=== PATIENT | female | born 1955 | race Caucasian/White ===

== ENCOUNTER 2017-10-01 08:39 | Outpatient (CLI) | payer OTHER | END 2017-10-01 08:40 | disposition home or self-care (01) | LOC: BICMAMMO 08:39 | PROVIDERS: ATTEND Internal Medicine Hematology & Oncology | DX: Z08 Encounter for follow-up examination after completed treatment for malignant neoplasm (principal); Z85.3 Personal history of malignant neoplasm of breast; Z80.3 Family history of malignant neoplasm of breast | CPT/HCPCS: 77066; G0279 ==

== ENCOUNTER 2020-07-07 07:50 | Outpatient (CLI) | payer OTHER, MEDICARE | END 2020-07-07 07:51 | disposition home or self-care (01) | LOC: DTY/OP 07:50 | PROVIDERS: ATTEND Surgery | DX: E03.9 Hypothyroidism, unspecified (principal) | CPT/HCPCS: 97802 ==

== ENCOUNTER 2021-01-05 16:30 | Inpatient (IN) | payer OTHER, MEDICARE ==
[2021-01-07 10:53] VITALS: BMI 39.0
[2021-01-10] MEDS ORDERED: Enoxaparin Sodium 40 MG/0.4 ML SYRINGE ONE (07:32)
[2021-01-10] MEDS ORDERED: Scopolamine 1.5 mg/72 hour Patch ONE (07:33)
[2021-01-10] MEDS ORDERED: cefOXitin Sodium/Dextrose 2 GM/50 ML BAG ONE (07:33)
[2021-01-10] MEDS ORDERED: Ondansetron PF 4 MG/2 ML Vial IVP PRN (09:13)
[2021-01-10] MEDS ORDERED: Dextrose 5% in Water 1,000 ML IV PRN (09:13)
[2021-01-10] MEDS ORDERED: Dextrose 50% Abboject 50 ML SYRINGE SLOW IVP PRN (09:13)
[2021-01-10] MEDS ORDERED: Promethazine HCl 25 MG/ML VIAL IM PRN ×2 (09:13→10:23)
[2021-01-10] MEDS ORDERED: diphenhydrAMINE 50 MG/ML VIAL IVP PRN (09:13)
[2021-01-10] MEDS ORDERED: hydrALAZINE 20 MG/ML VIAL SLOW IVP PRN (09:13)
[2021-01-10] MEDS ORDERED: Hydrocodone-Acetamin 15 ML UDCUP PO PRN (09:13)
[2021-01-10] MEDS ORDERED: Bupivacaine 0.25% HCL 30 ML VIAL ONE (09:19)
[2021-01-10] MEDS ORDERED: Lidocaine 1% w/Epinephrine 1:100K 20 ML VIAL ONE (09:19)
[2021-01-10] MEDS ORDERED: Fentanyl 250 MCG/5 ML VIAL ONE (09:32)
[2021-01-10] MEDS ORDERED: Rocuronium Bromide 10 MG/ML (10ML VIAL) ONE (09:44)
[2021-01-10] MEDS ORDERED: PROPOFOL 200 MG/20 ML VIAL ONE (09:44)
[2021-01-10] MEDS ORDERED: Dexamethasone 20 MG/5 ML VIAL ONE (09:44)
[2021-01-10] MEDS ORDERED: Ondansetron PF 4 MG/2 ML Vial ONE (09:44)
[2021-01-10] MEDS ORDERED: Lidocaine 1% PF 5 ML VIAL ONE (09:44)
[2021-01-10] MEDS ORDERED: Glycopyrrolate 0.2 MG/ML 5 ML SYRINGE ONE (09:44)
[2021-01-10] MEDS ORDERED: Ketorolac Tromethamine 30 MG/ML VIAL ONE (09:44)
[2021-01-10] MEDS ORDERED: Promethazine HCl 25 MG/ML VIAL IVPB PRN (10:23)
[2021-01-10] MEDS ORDERED: Ondansetron HCl/PF 4 MG/2 ML Vial IVP PRN (10:23)
[2021-01-10] MEDS ORDERED: SUGAMMADEX SODIUM 200 MG/2 ML VIAL ONE (11:13)
[2021-01-10] MEDS ORDERED: Fentanyl 100 MCG/2 ML VIAL ONE ×2 (11:24→11:52)
[2021-01-10] MEDS ORDERED: Morphine 4 MG/ML VIAL SLOW IVP PRN (11:32)
[2021-01-10] MEDS ORDERED: Acetaminophen 325 MG/10.15 ML UDCUP ONE (12:02)
[2021-01-10] MEDS ORDERED: Acetaminophen 325 MG/10.15 ML UDCUP PO SCH (12:30)
[2021-01-10] MEDS ORDERED: Promethazine HCl 25 MG/ML VIAL ONE (12:42)
[2021-01-10] MEDS ORDERED: Morphine 4 MG/ML VIAL ONE ×2 (13:27→14:57)
[2021-01-10] MEDS ORDERED: D5 1/2 NS w/20 mEq KCL 1,000 ML ONE (16:43)
[2021-01-10] MEDS: Ketorolac Tromethamine 30 MG/ML VIAL IVP SCH ×3 (17:18→23:31)
[2021-01-10] MEDS: D5 1/2 NS w/20 mEq KCL 1,000 ML IV SCH ×2 (17:19→18:49)
[2021-01-11] MEDS: D5 1/2 NS w/20 mEq KCL 1,000 ML IV SCH ×2 (01:49→13:14)
[2021-01-11] MEDS: Ketorolac Tromethamine 30 MG/ML VIAL IVP SCH ×2 (05:13→13:14)
[2021-01-11 05:38] LABS: #Lymphocytes 1.7 thou/uL (1.20-3.40); #Monocytes 0.6 thou/uL (0.11-0.59); #Neutrophils 6.3 thou/uL (1.40-6.50); %Eosinophils 0.4 % (0.0-10.0); %Lymphocytes 19.6 % (21.0-51.0); %Monocytes 6.6 % (0.0-10.0); %Neutrophils 73.3 % (42.0-75.0); Mean Corpuscular HGB CONC 32.9 g/dL (32.0-36.0); Mean Corpuscular Hemoglobin 28.7 pg (27.0-31.0); Mean Corpuscular Volume 87.1 fL (78.0-98.0); Mean Platelet Volume 6.2 fL (7.4-10.4); Platelet Count 227 thou/uL (130-400); RBC Distribution Width 14.2 % (11.5-14.5); Red Blood Cell (RBC) Count 4.55 mill/uL (4.20-5.40); White Blood Cell (WBC) Count 8.6 thou/uL (4.8-10.8)
[2021-01-11 05:57] LABS: Anion Gap 12 mmol/L (10-20); BUN (Urea Nitrogen) 10 mg/dL (9.8-20.1); Calc. Creatinine Clearance 114 mL/min (70-130); Calcium 8.4 mg/dL (7.8-10.44); Carbon Dioxide 26 mmol/L (23-31); Chloride 106 mmol/L (98-107); Glucose 91 mg/dL (80-115); Potassium 4.4 mmol/L (3.5-5.1); Sodium 140 mmol/L (136-145)
[2021-01-11] MEDS ORDERED: Levothyroxine Sodium 75 MCG TAB PO SCH (06:00)
[2021-01-11 08:12] VITALS: BP 140/83; TEMP 98.4
[2021-01-11] MEDS ORDERED: Pantoprazole 40 MG VIAL IVP SCH (09:00)
[2021-01-11] MEDS ORDERED: Enoxaparin Sodium 40 MG/0.4 ML SYRINGE SC SCH (09:00)
== END 2021-01-11 14:23 | disposition home or self-care (01) | DRG 621 ==
LOC: SURG A 01-10 06:49 → SJJU 01-10 17:32
PROVIDERS: ADMIT Surgery; ATTEND Surgery
PROC: 0DB64Z3 Excision of Stomach, Percutaneous Endoscopic Approach, Vertical (ICD-10-PCS; principal; 2021-01-10)
PROC: 8E0W4CZ Robotic Assisted Procedure of Trunk Region, Percutaneous Endoscopic Approach (ICD-10-PCS; 2021-01-10)
DX: E66.01 Morbid (severe) obesity due to excess calories (principal); Z20.822 Contact with and (suspected) exposure to COVID-19; M19.90 Unspecified osteoarthritis, unspecified site; I25.10 Atherosclerotic heart disease of native coronary artery without angina pectoris; K44.9 Diaphragmatic hernia without obstruction or gangrene; J30.2 Other seasonal allergic rhinitis; R73.9 Hyperglycemia, unspecified; K21.9 Gastro-esophageal reflux disease without esophagitis; Z90.710 Acquired absence of both cervix and uterus; Z68.39 Body mass index [BMI] 39.0-39.9, adult; Z91.040 Latex allergy status
CPT/HCPCS: 36415; 80048; 85025; 88307; C9113; J0694; J1100; J1650; J1885; J2270; J2405; J2550; J2704; J3010; J3480; S0020

== ENCOUNTER 2021-01-05 16:32 | Outpatient (CLI) | payer OTHER, MEDICARE ==
[2021-01-06 01:56] LABS: SARS-CoV-2 PCR by NAA Not Detected (NotDetected)
== END 2021-01-05 16:33 | disposition home or self-care (01) ==
LOC: LABBT 16:32
PROVIDERS: ATTEND Surgery
DX: Z01.812 Encounter for preprocedural laboratory examination (principal); E66.01 Morbid (severe) obesity due to excess calories; M19.90 Unspecified osteoarthritis, unspecified site; Z68.41 Body mass index [BMI] 40.0-44.9, adult; Z20.822 Contact with and (suspected) exposure to COVID-19
CPT/HCPCS: 82040; U0003; U0005

== ENCOUNTER 2023-11-29 15:52 | Outpatient (CLI) | payer BC, MEDICARE ==
[2023-11-29 17:20] LABS: #Basophils 0.03 10x3/uL (0.0-0.2); %Basophils 0.5 % (0.0-1.0); %Eosinophils 1.5 % (0.0-10.0); %Lymphocytes 24.9 % (21.0-51.0); %Monocytes 8.1 % (0.0-10.0); %Neutrophils 64.7 % (42.0-75.0); Hematocrit 40.9 % (36.0-47.0); Mean Corpuscular HGB CONC 31.8 g/dL (32.0-36.0); Mean Corpuscular Hemoglobin 29.1 pg (27.0-31.0); Mean Corpuscular Volume 91.5 fL (78.0-98.0); Mean Platelet Volume 8.8 fL (7.4-10.4); Platelet Count 202 10x3/uL (130-400); RBC Distribution Width 14.5 % (11.5-14.5); Red Blood Cell (RBC) Count 4.47 mill/uL (4.20-5.40)
[2023-11-29 17:25] LABS: Bacteria/HPF None Seen HPF (None Seen); Bilirubin Negative (Negative); Blood, Urine Negative (Negative); Clarity Clear (Clear); Glucose, Urine (Dipstick) Normal (Negative); Ketone, Urine Negative (Negative); Leukocyte Negative Leu/uL (Negative); Nitrite Negative (Negative); Protein, Urine (Dipstick) 10 mg/dL (Neg-Trace); RBC/HPF 0-3 HPF (0-3); WBC/HPF 0-3 HPF (0-3); pH, Urine 5.5 (5.0-9.0)
[2023-11-29 17:33] LABS: Anion Gap 11 mmol/L (10-20); BUN (Urea Nitrogen) 16 mg/dL (9.8-20.1); Calc. Creatinine Clearance 0 mL/min (70-130); Calcium 9.1 mg/dL (7.8-10.44); Carbon Dioxide 25 mmol/L (23-31); Chloride 108 mmol/L (98-107); Estimated GFR 66; Glucose 104 mg/dL (80-115); Sodium 140 mmol/L (136-145)
[2023-11-29 17:34] LABS: Prothrombin Time 12.8 sec (12.0-14.7)
== END 2023-11-29 15:53 | disposition home or self-care (01) ==
LOC: LABBT 15:52
PROVIDERS: ATTEND Urology
DX: Z01.818 Encounter for other preprocedural examination (principal); N28.89 Other specified disorders of kidney and ureter; I25.10 Atherosclerotic heart disease of native coronary artery without angina pectoris; Z68.41 Body mass index [BMI] 40.0-44.9, adult
CPT/HCPCS: 71046; 80048; 81001; 85025; 85610; 85730; 86850; 86900; 86901; 87086; 93005; 93010

== ENCOUNTER 2023-11-29 16:00 | Inpatient (IN) | payer BC, MEDICARE ==
[2023-11-29 16:46] VITALS: BMI 29.7
[2023-12-10] MEDS ORDERED: LevoFLOXacin D5W 500 mg (100 mL) BAG ONE (06:41)
[2023-12-10] MEDS ORDERED: CEFAZOLIN 2 GM VIAL ONE (06:42)
[2023-12-10] MEDS ORDERED: Sodium Chloride 0.9% 100 ML ONE (06:42)
[2023-12-10] MEDS ORDERED: Lidocaine 1% MPF 2 ML VIAL ONE (07:10)
[2023-12-10] MEDS ORDERED: Midazolam HCl 2 mg/2 ml Vial ONE (07:10)
[2023-12-10] MEDS ORDERED: fentaNYL 50 mcg/mL 1 mL Vial ONE ×2 (07:24→10:53)
[2023-12-10] MEDS ORDERED: Lidocaine 1.5% w/Epi 1:200K 30 ML VIAL (Epid Use) ONE (07:30)
[2023-12-10] MEDS ORDERED: PROPOFOL 20 ML ONE (07:40)
[2023-12-10] MEDS ORDERED: fentaNYL PF 100 MCG/2 ML SYRINGE ONE (07:40)
[2023-12-10] MEDS ORDERED: Lidocaine 2% PF 5 ML VIAL ONE (07:40)
[2023-12-10] MEDS ORDERED: Bupivacaine PF 0.5% 30 ML VIAL ONE (07:44)
[2023-12-10] MEDS ORDERED: Phenylephrine 10 MG/ML VIAL ONE (07:46)
[2023-12-10] MEDS ORDERED: PHENYLEPHRINE-NS 100 MCG/ML 10 ML SYRINGE ONE ×3 (07:57→13:16)
[2023-12-10] MEDS ORDERED: diphenhydrAMINE 50 MG/ML VIAL IVP PRN (08:00)
[2023-12-10] MEDS ORDERED: Naloxone HCl 0.4 mg/ml Vial IV PRN (08:00)
[2023-12-10] MEDS ORDERED: Naloxone HCl 0.4 mg/ml Vial IVP PRN (08:00)
[2023-12-10] MEDS ORDERED: Moisturizing Cream (Eucerin) 113 GM JAR TOP PRN (08:00)
[2023-12-10] MEDS ORDERED: diphenhydrAMINE 50 MG/ML VIAL IM PRN (08:00)
[2023-12-10] MEDS ORDERED: Promethazine HCl 25 MG SUPP PR PRN (08:00)
[2023-12-10] MEDS ORDERED: Promethazine HCl 25 MG/ML VIAL IM PRN ×2 (08:00→09:33)
[2023-12-10] MEDS ORDERED: Bupivacaine 0.25% 10 ML VIAL EPIDURAL PRN (08:00)
[2023-12-10] MEDS ORDERED: ePHEDrine Sulfate 50 MG/10 ML VIAL ONE (08:48)
[2023-12-10] MEDS ORDERED: Dexamethasone 20 MG/5 ML VIAL ONE (09:29)
[2023-12-10] MEDS ORDERED: Ondansetron PF 4 MG/2 ML Vial ONE (09:29)
[2023-12-10] MEDS ORDERED: Ondansetron HCl/PF 4 MG/2 ML Vial IVP PRN (09:33)
[2023-12-10] MEDS ORDERED: HYDROmorphone 2 MG/ML VIAL SLOW IVP PRN (09:33)
[2023-12-10] MEDS ORDERED: PACU-Morphine 4MG/ML VIAL SLOW IVP PRN (09:33)
[2023-12-10] MEDS ORDERED: Rocuronium Bromide 10 MG/ML (10ML VIAL) ONE ×2 (09:57→11:25)
[2023-12-10] MEDS ORDERED: SUGAMMADEX SODIUM 200 MG/2 ML VIAL ONE (10:12)
[2023-12-10] MEDS ORDERED: HYDROmorphone 0.5 MG/0.5 ML SYRINGE ONE (10:34)
[2023-12-10] MEDS ORDERED: hydrALAZINE 20 MG/ML VIAL SLOW IVP PRN (10:38)
[2023-12-10] MEDS ORDERED: Zolpidem Tartrate 5 MG TAB PO PRN ×2 (10:38→15:17)
[2023-12-10] MEDS ORDERED: Acetaminophen 500 MG TAB PO PRN (10:41)
[2023-12-10] MEDS ORDERED: Ondansetron PF 4 MG/2 ML Vial IVP PRN (10:42)
[2023-12-10] MEDS ORDERED: Bupivacaine 0.25% HCL 30 ML VIAL ONE (10:53)
[2023-12-10 11:10] LABS: #Basophils 0.03 10x3/uL (0.0-0.2); %Basophils 0.3 % (0.0-1.0); %Eosinophils 0.6 % (0.0-10.0); %Monocytes 5.7 % (0.0-10.0); %Neutrophils 78.2 % (42.0-75.0); Hematocrit 36.7 % (36.0-47.0); Mean Corpuscular HGB CONC 32.7 g/dL (32.0-36.0); Mean Corpuscular Hemoglobin 29.6 pg (27.0-31.0); Mean Corpuscular Volume 90.4 fL (78.0-98.0); Mean Platelet Volume 8.4 fL (7.4-10.4); Platelet Count 162 10x3/uL (130-400); RBC Distribution Width 13.6 % (11.5-14.5); Red Blood Cell (RBC) Count 4.06 mill/uL (4.20-5.40)
[2023-12-10] MEDS ORDERED: Fentanyl 250 MCG/5 ML VIAL ONE (11:44)
[2023-12-10 11:45] LABS: Anion Gap 13 mmol/L (10-20); BUN (Urea Nitrogen) 12 mg/dL (9.8-20.1); Calc. Creatinine Clearance 87 mL/min (70-130); Calcium 8.6 mg/dL (7.8-10.44); Carbon Dioxide 24 mmol/L (23-31); Chloride 108 mmol/L (98-107); Estimated GFR 76; Glucose 141 mg/dL (80-115); Potassium 3.6 mmol/L (3.5-5.1); Sodium 141 mmol/L (136-145)
[2023-12-10] MEDS ORDERED: Lidocaine 1% w/Epinephrine 1:100K 20 ML VIAL ONE (13:15)
[2023-12-10 14:35] LABS: Hematocrit 34.6 % (36.0-47.0); Hemoglobin 11.6 g/dL (12.0-16.0)
[2023-12-10] MEDS: Sodium Chloride 0.9% 500 ML IV SCH ×2 (15:30→18:00)
[2023-12-10] MEDS: Sodium Chloride 0.9% 1,000 ML IV SCH (16:22)
[2023-12-10] MEDS: Ondansetron PF 4 MG/2 ML Vial IVP PRN (16:22)
[2023-12-10] MEDS: diphenhydrAMINE 25 MG CAP PO PRN (18:00)
[2023-12-10] MEDS: Docusate 100 MG CAP PO SCH (20:02)
[2023-12-11] MEDS: cefTRIAXone\\ROCEPHIN 1 GM in Sodium Chloride 0.9% 100 ML IVPB SCH (04:30)
[2023-12-11] MEDS: Levothyroxine Sodium 88 MCG TAB PO SCH (06:04)
[2023-12-11 06:39] LABS: #Basophils Less than 0.03 10x3/uL (0.0-0.2); #Eosinophils Less than 0.03 10x3/uL (0.0-0.7); %Basophils 0.1 % (0.0-1.0); %Lymphocytes 8.5 % (21.0-51.0); %Monocytes 8.9 % (0.0-10.0); %Neutrophils 82.3 % (42.0-75.0); Hemoglobin 10.8 g/dL (12.0-16.0); Mean Corpuscular HGB CONC 32.7 g/dL (32.0-36.0); Mean Corpuscular Hemoglobin 29.1 pg (27.0-31.0); Mean Corpuscular Volume 88.9 fL (78.0-98.0); Mean Platelet Volume 9.2 fL (7.4-10.4); Platelet Count 200 10x3/uL (130-400); RBC Distribution Width 13.9 % (11.5-14.5); Red Blood Cell (RBC) Count 3.71 mill/uL (4.20-5.40)
[2023-12-11 07:08] LABS: Anion Gap 12 mmol/L (10-20); BUN (Urea Nitrogen) 15 mg/dL (9.8-20.1); Calc. Creatinine Clearance 71 mL/min (70-130); Calcium 8.5 mg/dL (7.8-10.44); Carbon Dioxide 23 mmol/L (23-31); Chloride 110 mmol/L (98-107); Estimated GFR 59; Glucose 105 mg/dL (80-115); Potassium 4.6 mmol/L (3.5-5.1); Sodium 140 mmol/L (136-145)
[2023-12-11] MEDS: Polyethylene Glycol 3350 17 GM Packet PO SCH (08:39)
[2023-12-11] MEDS: Pantoprazole DR 40 MG TAB PO SCH (08:39)
[2023-12-11] MEDS: FENTANYL 500 MCG/10 ML VIAL 500 MCG, Bupivacaine 0.75% 10 ML in Sodium Chloride 0.9% 80 ML EPIDURAL SCH (10:28)
[2023-12-11 15:28] LABS: Hemoglobin 9.6 g/dL (12.0-16.0)
[2023-12-11] MEDS: Melatonin 3 MG TAB PO PRN (20:35)
[2023-12-12 05:48] LABS: Hematocrit 26.6 % (36.0-47.0); Hemoglobin 8.6 g/dL (12.0-16.0); Mean Corpuscular HGB CONC 32.3 g/dL (32.0-36.0); Mean Corpuscular Hemoglobin 28.7 pg (27.0-31.0); Mean Corpuscular Volume 88.7 fL (78.0-98.0); Mean Platelet Volume 9.1 fL (7.4-10.4); Platelet Count 135 10x3/uL (130-400)
[2023-12-12 06:22] LABS: Anion Gap 8 mmol/L (10-20); BUN (Urea Nitrogen) 12 mg/dL (9.8-20.1); Calc. Creatinine Clearance 79 mL/min (70-130); Calcium 7.8 mg/dL (7.8-10.44); Carbon Dioxide 21 mmol/L (23-31); Chloride 113 mmol/L (98-107); Estimated GFR 68; Glucose 92 mg/dL (80-115); Potassium 3.7 mmol/L (3.5-5.1); Sodium 138 mmol/L (136-145)
[2023-12-12] MEDS: Acetaminophen 500 MG TAB PO PRN (09:04)
[2023-12-12 12:38] VITALS: BP 118/69
[2023-12-12] MEDS: traMADol HCl 50 MG TAB PO PRN ×2 (12:47→23:51)
[2023-12-12] MEDS: Furosemide 40 MG (4 mL) VIAL SLOW IVP SCH (15:03)
[2023-12-12 15:22] LABS: Hemoglobin 10.9 g/dL (12.0-16.0)
[2023-12-13 06:49] LABS: Hematocrit 34.8 % (36.0-47.0); Hemoglobin 11.1 g/dL (12.0-16.0); Mean Corpuscular HGB CONC 31.9 g/dL (32.0-36.0); Mean Corpuscular Hemoglobin 28.1 pg (27.0-31.0); Mean Corpuscular Volume 88.1 fL (78.0-98.0); Mean Platelet Volume 8.8 fL (7.4-10.4); Platelet Count 136 10x3/uL (130-400); Red Blood Cell (RBC) Count 3.95 mill/uL (4.20-5.40)
[2023-12-13 07:19] LABS: Anion Gap 10 mmol/L (10-20); BUN (Urea Nitrogen) 11 mg/dL (9.8-20.1); Calc. Creatinine Clearance 68 mL/min (70-130); Calcium 8.4 mg/dL (7.8-10.44); Carbon Dioxide 25 mmol/L (23-31); Chloride 106 mmol/L (98-107); Estimated GFR 58; Glucose 111 mg/dL (80-115); Potassium 3.5 mmol/L (3.5-5.1); Sodium 137 mmol/L (136-145)
[2023-12-13] MEDS ORDERED: oxyCODONE 5 MG TAB PO PRN (10:57)
[2023-12-13] MEDS ORDERED: fentaNYL 50 mcg/mL 1 mL Vial SLOW IVP PRN (13:03)
[2023-12-13] MEDS: Acetaminophen 325 MG TAB PO SCH (13:33)
[2023-12-13 15:22] LABS: Hematocrit 34.6 % (36.0-47.0); Hemoglobin 11.2 g/dL (12.0-16.0)
[2023-12-13] MEDS ORDERED: Metoclopramide HCl 10 MG (2 mL) VIAL IVP PRN (17:29)
[2023-12-13] MEDS ORDERED: HYDROcodone/Acetaminophen 5/325 mg Tablet PO PRN (17:29)
[2023-12-13] MEDS: Mag-Al 1200 mg/1200 mg/30 ML UDCUP PO PRN (17:48)
[2023-12-13] MEDS: Sodium Chloride 0.9% 1,000 ML IV SCH (17:48)
[2023-12-14 03:54] LABS: Hematocrit 33.8 % (36.0-47.0); Hemoglobin 11.1 g/dL (12.0-16.0); Mean Corpuscular HGB CONC 32.8 g/dL (32.0-36.0); Mean Corpuscular Hemoglobin 28.2 pg (27.0-31.0); Mean Corpuscular Volume 85.8 fL (78.0-98.0); Mean Platelet Volume 8.6 fL (7.4-10.4); Platelet Count 142 10x3/uL (130-400); RBC Distribution Width 15.6 % (11.5-14.5); Red Blood Cell (RBC) Count 3.94 mill/uL (4.20-5.40)
[2023-12-14 04:09] LABS: Anion Gap 10 mmol/L (10-20); BUN (Urea Nitrogen) 10 mg/dL (9.8-20.1); Calc. Creatinine Clearance 83 mL/min (70-130); Calcium 8.5 mg/dL (7.8-10.44); Carbon Dioxide 25 mmol/L (23-31); Chloride 104 mmol/L (98-107); Estimated GFR 74; Glucose 89 mg/dL (80-115); Potassium 3.9 mmol/L (3.5-5.1); Sodium 135 mmol/L (136-145)
[2023-12-14 08:13] VITALS: TEMP 97.5
[2023-12-14] MEDS: HYDROcodone/Acetaminophen 5/325 mg Tablet PO PRN (11:19)
== END 2023-12-14 13:55 | disposition home or self-care (01) | DRG 657 ==
LOC: SURG A 12-10 06:21 → EDSTATUS 12-10 13:33 → CCU 12-10 15:51 → IMCU/EMU 12-11 08:45
PROVIDERS: ADMIT Urology; ATTEND Urology
PROC: 0TB00ZZ Excision of Right Kidney, Open Approach (ICD-10-PCS; principal; 2023-12-10)
DX: C64.1 Malignant neoplasm of right kidney, except renal pelvis (principal); D62 Acute posthemorrhagic anemia; N12 Tubulo-interstitial nephritis, not specified as acute or chronic; Z96.653 Presence of artificial knee joint, bilateral; I25.10 Atherosclerotic heart disease of native coronary artery without angina pectoris; M19.90 Unspecified osteoarthritis, unspecified site; G89.4 Chronic pain syndrome; N26.9 Renal sclerosis, unspecified; Z91.048 Other nonmedicinal substance allergy status; Z90.710 Acquired absence of both cervix and uterus; Z91.041 Radiographic dye allergy status; Z90.49 Acquired absence of other specified parts of digestive tract; Z92.21 Personal history of antineoplastic chemotherapy; Z92.3 Personal history of irradiation
CPT/HCPCS: 36415; 36416; 36430; 80048; 82570; 85025; 85027; 86850; 86900; 86901; 88307; A4314; A4333; A4649; C1713; C1776; J0665; J0696; J1100; J1170; J1642; J1940; J1956; J2250; J2371; J2405; J2704; J3010; J3490; J7030; P9016